=== PATIENT | male | born 1960 | race Caucasian/White ===

== ENCOUNTER 2018-10-19 08:55 | Day surgery (SDC) | payer OTHER ==
[~2018-10-19] VITALS: Ht 180.3 cm; Wt 90.7 kg
[~2018-10-19 08:55] MED LIST: ATENOLOL50 MG PO; FISH OIL 1,0001 EAC2 NG; LISINOPRIL-HCT1 EACH PO; MELOXICAM15 MG PO; MULTIVITAMINS1 EAC7 PO
[2018-10-19] MEDS ORDERED: GABAPENTIN300 MG PO (11:43)
[2018-10-19] MEDS ORDERED: HYDROCODON-ACE1 EA11 PO (11:44)
--- NOTE | 2018-10-19 13:09 | NUR ---
10/19/18 1309 Sheets,Susy 1254 PT ARRIVED TO PACU ON 8L VIA MASK, JAW THRUST NEEDED TO MAINTAIN AIRWAY. PT NONAROUSABLE TO PAINFUL STIMULI, RESP EVEN AND UNLABORED. 1303 HOB LOWERED AND PT REACTIV ETO PAINFUL STIMULI. PT ABLE TO MAINTAIN OWN AIRWAY. 1305 SNORING NOTED. 1306 PT WOKE SLIGHTLY TO TACTILE STIMULI AND ABLE TO FOLLOW COMMANDS TO DEEP BREATHE.
--- NOTE | 2018-10-19 13:56 | NUR ---
PT ARRIVES TO DS RM 12 FROM PACU DROWSY. PT EASILY AROUSED BY VERBAL COMMAND. RESP EVEN AND UNLABORED, SATS ABOVE 94% ON RA. PT DENIES ANY NAUSEA AND RATES PAIN 6/10 IN RIGHT SHOULDER. PT HAS CRYOCUFF IN PLACE AND SHOULDER IMMOBILIZER. PT SPOUSE ARRIVES IN FROM PHARMACY. PT PROVIDED ICED WATER AND CRACKERS AND MEDICATED FOR PAIN; SEE EMAR. CALL LIGHT WITHIN REACH.
--- NOTE | 2018-10-19 14:50 | NUR ---
PT TOLERATES LUNCH WELL, CONSUMES HALF PORTION. PT AT BEDSIDE. PT PAIN TOLERABLE LEVEL.
--- NOTE | 2018-10-19 15:44 | NUR ---
1445: PT UP TO BATHROOM WITH RN AND SPOUSE ASSIST. STEADY GAIT, PT DENIES ANY DIZZINESS. PT ABLE TO VOID QS WITH NO PROBLEM. PT BACK TO RM TO GET DRESSED WITH HELP FROM SPOUSE. 1515: DC INSTRUCTIONS GIVEN IN PRESENCE OF PT AND SPOUSE. ALL QUESTIONS ADDRESSED. PT DC'S FROM RM 12 VIA WC TO PERSONAL VEHICLE AT FRONT ENTRANCE OF HOSPITAL HOME.
--- NOTE | 2018-10-20 07:51 | OR ---
[facility] [address] [place], [place] [address] Signed DATE OF OPERATION: 10/19/2018 SURGEON: Cinthia Smith MD PREOPERATIVE DIAGNOSIS: Rotator cuff tear, recurrent, right shoulder. POSTOPERATIVE DIAGNOSIS: Rotator cuff tear, recurrent, right shoulder. PROCEDURE PERFORMED: Right shoulder arthroscopy with rotator cuff repair. VERIFIER: Kami Stern PA-C. Kami was present and critical for positioning, camera holding, and closure as well as arm moulding. ANESTHESIA: General. BLOOD LOSS: Minimal. IMPLANTS: Two 4.75 SwiveLock was and. BRIEF HISTORY: Jennifer is a 58-year-old gentleman who had rotator cuff repair number years ago and with G four anchors. Ultimately, he returned with pain and MRI was consistent with recurrent Re rotator cuff tear and partial biceps tear. Risks and benefits of operative treatment discussed with him. He elected to proceed once consent was obtained, he was taken to the operating room. After adequate anesthesia, he was placed in the beach chair position. All downside pressure points well padded. The shoulder was prepped and draped in a standard sterile fashion and injected with 10 correction 15 mL 0.25% Marcaine with epinephrine as was subacromial space. Standard posterior portal was made the scope was introduced in the shoulder. Arthroscopic findings: Glenohumeral surfaces were intact biceps was noted to have about a 75% tear with the extremely poor tissue. The labrum was intact. The subscapularis was intact. The rotator cuff was noted to have a 2 cm tear starting at the biceps and Electronically Signed By: CINTHIA SMITH MD 10/20/18 0751 PATIENT NAME: JENNIFER ORTEGA OPERATIVE REPORT DATE OF : 58 REPORT #: [id number] PHYSICIAN: CINTHIA SMITH MD PCP: NAPOLEON MEADE MD REPORT IS CONFIDENTIAL AND NOT TO BE RELEASED WITHOUT AUTHORIZATION [facility] [address] [place], [place] [address] Signed extending posteriorly. There was minimal retraction. The subacromial space had a centrally. No bursitis. Description operation standard anterior portal was made and diagnostic arthroscopy was undertaken as noted above. The undersurface of the rotator cuff tear was debrided and the scope was withdrawn placed in subacromial space. The bursa was essentially non-existent and the tear was easily identified. This was cleaned up down to viable tissue. The tuberosity was then cleaned of scar tissue. The two anchors from the prior surgery easily. The visualized. The bone was slightly decorticated using the bur and multiple drill holes were made. The correction three sutures were placed, one labral tape, two and FiberTape and a FiberWire. The FiberTape and FiberWire were in the posterior half of the tear were taken through a single anchor in the posterior aspect. This was tensioned and the anchor was impacted until it was well-seated and screwed into the bone. The labral tape anteriorly was placed through the 2nd anchor and the 2nd anchor was placed anteriorly and impacted until it was well seated. It was then screwed into the bone. The retention suture for the 2nd anchor was left in place and scorpion was used to tie down some loose tissue anteriorly. Once this was accomplished, the shoulder was moved, had excellent bleeding from the bone and excellent stability of the cuff repair. The scope was withdrawn. Portals closed with 3-0 nylon, dressed with ProWick dressing. He tolerated the procedure well. All sponge, needle, and instrument counts were. Cinthia Smith MD BA/DEENAL /[id number] Copies: ~ Electronically Signed By: CINTHIA SMITH MD 10/20/18 0751 PATIENT NAME: JENNIFER ORTEGA OPERATIVE REPORT DATE OF : 58 REPORT #: [id number] PHYSICIAN: CINTHIA SMITH MD PCP: NAPOLEON MEADE MD REPORT IS CONFIDENTIAL AND NOT TO BE RELEASED WITHOUT AUTHORIZATION
== END 2018-10-19 15:20 | disposition home or self-care (01) ==
LOC: DS 08:55 → OPS 08:55
PROVIDERS: Specialist
PROC: 0LQ14ZZ Repair Right Shoulder Tendon, Percutaneous Endoscopic Approach (ICD-10-PCS; principal; 2018-10-19 12:00)
DX: M75.101 Unspecified rotator cuff tear or rupture of right shoulder, not specified as traumatic (principal); S46.211A Strain of muscle, fascia and tendon of other parts of biceps, right arm, initial encounter; G89.29 Other chronic pain; K21.9 Gastro-esophageal reflux disease without esophagitis; I10 Essential (primary) hypertension; Z79.1 Long term (current) use of non-steroidal anti-inflammatories (NSAID); Z79.899 Other long term (current) drug therapy
CPT/HCPCS: 01630; 64415; 76942; C1713; J0330; J0690; J0735; J1100; J1885; J2250; J2405; J2704; J2765; J3010; J7120

== ENCOUNTER 2021-12-07 06:20 | Day surgery (SDC) | payer OTHER ==
[~2021-12-07] VITALS: Ht 180.3 cm; Wt 88.6 kg
[~2021-12-07 06:20] MED LIST changes: +FLOMAX0.4 MG PO; +GABAPENTIN300 MG PO; +HYDROCODON-ACE1 EA11 PO; +[UNRECOGNIZED DRUG - OTHER] PO
--- NOTE | 2021-12-07 08:15 | NUR ---
PT ALERT, ORIENTED AND SEEMS PREPARED AND ALL QUESITONS ASKED ANSWERED. PT MENTIONED HIS WILL BE HERE FOR DC. PT REQUESTED PRAYER, WILL FOLLOW.
[2021-12-07] MEDS ORDERED: HYDROCODON-ACE1 EA10 PO (08:22)
--- NOTE | 2021-12-07 08:24 | NUR ---
12/07/21 0824 Frida Bradford 0820 PATIENT ARRIVES TO PACU UNRESPONSIVE TO PAIN. ORAL AIRWAY IN PLACE. RESP EVEN AND UNLABORED, MASK AT 10 LITERS.
--- NOTE | 2021-12-07 09:28 | NUR ---
PT DENIES THE NEED FOR PAIN MEDICATIONS AT THIS TIME. HE HAS EATEN A SNACK, ZACHARY WELL SO FAR. AT THE BEDSIDE.
--- NOTE | 2021-12-07 10:24 | NUR ---
PT TRANSPORTED VIA WHEELCHAIR TO THE FRONT OF HOSPITAL, DRIVING. PT ABLE TO AMBULATE AND ZACHARY-WELL. INSTRUNCTIONS GIVEN ALL QUESTIONS ANSWERED.
--- NOTE | 2021-12-08 09:56 | OR ---
[facility] [address] [place], [place] [address] Signed DATE OF OPERATION: 12/07/2021 SURGEON: Cinthia Smith MD PREOPERATIVE DIAGNOSIS: Chronic prepatellar bursitis with gouty tophi. POSTOPERATIVE DIAGNOSIS: Chronic prepatellar bursitis with gouty tophi. PROCEDURE PERFORMED: Right knee bursectomy. BELLMAN CAPTAIN: None. ANESTHESIA: General. TOURNIQUET TIME: Zero. BRIEF HISTORY: Jennifer is a 61-year-old male with a history of gout. He had developed swelling, discomfort and large lumps in his right anterior knee. MRI and exam were consistent with a gouty bursitis of the right knee. Risks and benefits of operative treatment were discussed with him and he elected to proceed. DESCRIPTION OF PROCEDURE: Once consent was obtained, he was taken to the operating room. After adequate anesthesia, he was placed on the operating room table and all downside pressure points were well padded. The right knee was prepped and draped in a standard sterile fashion. A midline incision 2 inches long was centered over the knee cap, carried through the skin and subcutaneous tissue. Skin flaps were elevated off the bursa medially and laterally. There were extensive gouty tophi in the bursal wall itself which was quite thickened and fibrotic. The bursa was then dissected free of the underlying soft tissue and removed. The bursa itself was full of multiple gouty tophi. This was also incorporated into the underlying soft tissue, patellar tendon and patellar bone. There was extensive fibrosis along the quad tendon medially and laterally. This was all dissected out as best we could. The gouty tophi were debrided using the rongeur. Once Electronically Signed By: CINTHIA SMITH MD 12/08/21 0956 PATIENT NAME: JENNIFER ORTEGA OPERATIVE REPORT DATE OF : 58 REPORT #: [id number] PHYSICIAN: CINTHIA SMITH MD PCP: NAPOLEON MEADE MD REPORT IS CONFIDENTIAL AND NOT TO BE RELEASED WITHOUT AUTHORIZATION [facility] [address] [facility] [place], [place] [address] Signed we had it cleaned as well as we could, the wound was copiously irrigated with normal saline. We then cauterized all bleeders and closed using 2-0 Stratafix and 3-0 Stratafix. The wound was Dermabonded and dressed with an Allevyn dressing, ABD and Nnamdi wrap. He tolerated the procedure well. All sponge, needle, and instrument counts were correct. We did send the specimen to pathology as well. Cinthia Smith MD BA/DEENAL /[id number] Copies: ~ Electronically Signed By: CINTHIA SMITH MD 12/08/21 0956 PATIENT NAME: JENNIFER ORTEGA OPERATIVE REPORT DATE OF : 58 REPORT #: [id number] PHYSICIAN: CINTHIA SMITH MD PCP: NAPOLEON MEADE MD REPORT IS CONFIDENTIAL AND NOT TO BE RELEASED WITHOUT AUTHORIZATION
--- NOTE | 2021-12-11 08:14 | PATH ---
[facility] [address] [place], [place] [address] Signed SPECIMEN(S): A RIGHT KNEE BURSA SPECIMEN SOURCE: A. RIGHT KNEE BURSA CLINICAL HISTORY: Bursitis, suspect gout. Right knee excision of prepatellar bursa. FINAL PATHOLOGIC DIAGNOSIS: Prepatellar bursa, right knee, excision: - Gouty tophi in fibrovascular connective tissue. COMMENT: The specimen was submitted in formalin, but negatively birefringent needle-shaped crystals were still identified. The specimen was confirmed as the "right" by [employer]'s marketing clerk on 12/10/21. NAL:cml:C2NR MICROSCOPIC EXAMINATION: Sections demonstrate several fragments of fibrovascular connective tissue that is expanded by nodules of pink crystalline type material with an associated foreign body-type giant cell reaction. The crystals are needle shaped and demonstrate negative birefringence with polarized light microscopy. The features are compatible with gout. NAL:cml GROSS DESCRIPTION: The specimen, labeled "DF, A," and designated on the requisition "left knee bursa bursitis, suspect gout" (site verified by office as "right knee"), is received in formalin and consists of multiple pieces of pink-thornton, membranous tissue with white-thornton, friable, chalky material (6.0 x 4.5 x 1.0 cm in aggregate). Digital Imager sections are submitted in cassette (A1). (Specimen placed in 100% EtOH prior to processing). AC (under the direct supervision of a pathologist) The Gross Description was prepared using a voice recognition system. The report was reviewed for accuracy; however, sound-alike word errors, addition and/or deletions may occur. If there is any question about this report, please contact Client Services. PATIENT NAME: JENNIFER ORTEGA PATHOLOGY DATE OF : 58 REPORT #: [id number] PHYSICIAN: REBECCA PATHOLOGY PCP: NAPOLEON MEADE MD REPORT IS CONFIDENTIAL AND NOT TO BE RELEASED WITHOUT AUTHORIZATION [facility] [address] [place] [address] Signed PERFORMING LABORATORY: The technical component [place] [id number] (CLIA# [id number]). Professional interpretation was performed by [facility], [address] [address] (CLIA# [id number]). Diagnostician: Aletha Soto MD Pathologist Electronically Signed 12/11/2021 Copies: ~ PATIENT NAME: JENNIFER ORTEGA PATHOLOGY DATE OF : 58 REPORT #: [id number] PHYSICIAN: REBECCA CUMMINGS PCP: NAPOLEON MEADE MD REPORT IS CONFIDENTIAL AND NOT TO BE RELEASED WITHOUT AUTHORIZATION
== END 2021-12-07 10:10 | disposition home or self-care (01) ==
LOC: DS 06:20
PROVIDERS: ATTEND Specialist
PROC: 0MTN0ZZ Resection of Right Knee Bursa and Ligament, Open Approach (ICD-10-PCS; principal; 2021-12-07 07:40)
DX: M1A.0611 Idiopathic chronic gout, right knee, with tophus (tophi) (principal); I10 Essential (primary) hypertension; K21.9 Gastro-esophageal reflux disease without esophagitis; Z88.0 Allergy status to penicillin
CPT/HCPCS: 36415; 80053; J0690; J1100; J1885; J2001; J2405; J2704; J3010

== ENCOUNTER 2024-12-13 13:04 | Emergency (ER) | payer MEDICARE, OTHER ==
[~2024-12-13] VITALS: Ht 180.3 cm; Wt 89.6 kg
[~2024-12-13 13:04] MED LIST changes: +HYDROCODON-ACE1 EA10 PO
[2024-12-13] MEDS ORDERED: LACTATED RINGER'S 1,000 ML IV ONE (14:00)
[2024-12-13 14:12] LABS: BASOPHILS 0.2 % (0.2-1.2); EOSINOPHILS 0.5 % (0.8-7.0); LYMPHOCYTES 10.2 % (21.8-53.1); MCH 29.4 PG (25.7-32.2); MCHC 32.6 g/dL (32.3-36.5); MCV 90.2 fL (79.0-92.2); MONOCYTES 3.7 % (5.3-12.2); NEUTROPHILS 85.0 % (34.0-67.9); RBC 5.21 M/uL (4.63-6.08)
[2024-12-13 14:22] LABS: INR 0.99 (0.80-1.30); PROTIME 12.7 Sec (11.2-14.2)
[2024-12-13 14:28] LABS: ALCOHOL, MEDICAL <3 ng/dL (<3); ALT (SGPT) 30 U/L (14-59); AST (SGOT) 19 U/L (15-37); GLOMERULAR FILTRATION RATE,EST 36 mL/min (>60); PROTEIN, TOTAL 8.0 g/dL (6.4-8.2); UREA NITROGEN 20 mg/dL (7-18)
[2024-12-13 14:58] LABS: ABO O; ANTIBODY SCREEN NEGATIVE; RH POSITIVE
[2024-12-13 15:39] VITALS: BP 153/83
== END 2024-12-13 15:44 | disposition home or self-care (01) ==
LOC: ED 13:04
PROVIDERS: Emergency Medicine
DX: S06.0X9A Concussion with loss of consciousness of unspecified duration, initial encounter (principal); S01.01XA Laceration without foreign body of scalp, initial encounter; W18.30XA Fall on same level, unspecified, initial encounter; I10 Essential (primary) hypertension; Z79.899 Other long term (current) drug therapy; Z88.0 Allergy status to penicillin
CPT/HCPCS: 36415; 70450; 71045; 72125; 72170; 80053; 80307; 85025; 85610; 86850; 86900; 86901; 99284-25; G0480; J7121